=== PATIENT | female | born 1955 | race Caucasian/White ===

== ENCOUNTER 2018-08-26 23:13 | Inpatient (IN) | payer MEDICAID ==
[~2018-08-26] VITALS: Ht 162.6 cm; Wt 98.0 kg
[2018-08-26] MEDS ORDERED: ASPIRIN 81MG TABLET PO ONE (23:45)
[2018-08-27] VITALS (7 sets, daily range): BP systolic 93–122; BP diastolic 41–65
[2018-08-27 00:03] LABS: BASOPHILS % 0.5 % (0.0-2.0); EOSINOPHILS % 1.9 % (0.0-5.0); HEMATOCRIT. 35.4 % (36.0-48.0); HEMOGLOBIN. 11.8 g/dL (12.0-16.0); MEAN CORPUSCULAR HEMOGLOBIN 31.5 pg (28.0-32.0); MEAN CORPUSCULAR VOLUME 94.5 fL (81.0-99.0); MEAN PLATELET VOLUME 9.4 fl (7.4-10.4); MONOCYTES % 8.5 % (2.0-8.0); NEUTROPHILS % 67.1 % (40.0-76.0); PLATELET 203 x1000/uL (130-400); RED BLOOD CELL COUNT 3.75 mill/uL (4.2-5.4); RED CELL DISTRIBUTION WIDTH 13.7 % (11.6-14.6)
[2018-08-27 00:06] LABS: CHLORIDE 107 mEq/L (98-107)
[2018-08-27 00:13] LABS: D-DIMER < 0.19 mg/L FEU (<0.50); PARTIAL THROMBOPLASTIN TIME 29.1 sec (23.4-31.0); PROTHROMBIN TIME 10.4 sec (9.6-11.0)
[2018-08-27] MEDS ORDERED: ACETAMINOPHEN 325MG TABLET PO ONE (00:45)
[2018-08-27] MEDS ORDERED: FUROSEMIDE 20MG/2ML VIAL IVP ONE (01:30)
[2018-08-27 10:20] LABS: BASOPHILS % 0.5 % (0.0-2.0); EOSINOPHILS % 2.4 % (0.0-5.0); HEMATOCRIT. 34.2 % (36.0-48.0); HEMOGLOBIN. 11.4 g/dL (12.0-16.0); LYMPHOCYTES % 26.1 % (20.0-50.0); MEAN CORPUSCULAR HEMOGLOBIN 31.4 pg (28.0-32.0); MEAN CORPUSCULAR VOLUME 94.6 fL (81.0-99.0); MEAN PLATELET VOLUME 9.1 fl (7.4-10.4); MONOCYTES % 8.2 % (2.0-8.0); NEUTROPHILS % 62.8 % (40.0-76.0); PLATELET 197 x1000/uL (130-400); RED BLOOD CELL COUNT 3.62 mill/uL (4.2-5.4); RED CELL DISTRIBUTION WIDTH 13.9 % (11.6-14.6)
[2018-08-27 10:28] LABS: CHLORIDE 111 mEq/L (98-107)
[2018-08-27 10:34] LABS: LDL CHOLESTEROL 85 mg/dL (5-100)
[2018-08-27 10:36] LABS: CREATINE KINASE 81 IU/L (26-192); HDL CHOLESTEROL 60 mg/dL (40-59)
[2018-08-27] MEDS ORDERED: REGADENOSON 0.4 MG/5 ML IV SCH (11:30)
[2018-08-27 12:50] LABS: T4 FREE 1.33 ng/dL (0.76-1.46)
[2018-08-27] MEDS: ASPIRIN 81MG TABLET PO SCH (13:25)
[2018-08-27] MEDS ORDERED: BENA40TA9 MT (13:32)
[2018-08-27] MEDS ORDERED: METO-539 MT (13:32)
[2018-08-27] MEDS ORDERED: ATOR40TA70 MT (13:32)
[2018-08-27] MEDS ORDERED: AMIO100T4 PO (13:36)
[2018-08-27] MEDS ORDERED: ISOS60TA4 PO (13:36)
[2018-08-27] MEDS ORDERED: SPIR25TA6 MT (13:36)
[2018-08-27] MEDS ORDERED: LEVO75TA7 MT (13:36)
[2018-08-27 19:18] LABS: CREATINE KINASE 77 IU/L (26-192)
[2018-08-27 19:19] LABS: CREATINE KINASE MB FRACTION < 1.0 ng/mL (0.5-3.6)
[2018-08-28 04:30] VITALS: BP 106/65
[2018-08-28 07:58] VITALS: BP 114/73
[2018-08-28] MEDS: ASPIRIN 81MG TABLET PO SCH (09:32)
[2018-08-28] MEDS ORDERED: REGADENOSON 0.4 MG/5 ML IV ONE (11:16)
[2018-08-28] MEDS ORDERED: ISOSORBIDE MONONITRATE 60MG TABLET SR 24HR PO SCH (12:00)
[2018-08-28] MEDS ORDERED: LEVOTHYROXINE SODIUM 75MCG TABLET PO SCH (12:00)
[2018-08-28] MEDS ORDERED: SPIRONOLACTONE 50MG TABLET PO SCH (12:00)
[2018-08-28] MEDS ORDERED: BENAZEPRIL 10MG TABLET PO SCH (13:00)
[2018-08-28 14:37] VITALS: BP 133/56
[2018-08-28] MEDS ORDERED: METOPROLOL TARTRATE 50MG TABLET PO SCH (21:00)
[2018-08-28] MEDS ORDERED: ATORVASTATIN CALCIUM 40MG TABLET PO SCH (21:00)
== END 2018-08-28 18:06 | disposition home or self-care (01) | DRG 243 ==
LOC: ER 23:13 → ENRESERV 08-27 02:39 → 5WST 08-27 04:08
PROVIDERS: ADMIT Family Medicine; ATTEND Family Medicine
DX: K21.9 Gastro-esophageal reflux disease without esophagitis (principal); I49.5 Sick sinus syndrome; I25.10 Atherosclerotic heart disease of native coronary artery without angina pectoris; E11.9 Type 2 diabetes mellitus without complications; I10 Essential (primary) hypertension; Z95.0 Presence of cardiac pacemaker; E78.5 Hyperlipidemia, unspecified
CPT/HCPCS: 36415; 71045; 78452; 80048; 80061; 82550; 82553; 83036; 83880; 84439; 84443; 84484; 85379; 93005; 93017; 93306; 93970; 99285; A9500; J2785